=== PATIENT | female | born 1945 ===

== ENCOUNTER 2016-09-05 10:16 | Inpatient (IN) | payer MEDICARE, BC ==
[2016-09-05 10:51] LABS: BASO # 0.1 K/uL (0.0-0.2); BASO % 0.8 % (0.0-2.0); EOS # 0.2 K/uL (0.0-0.7); EOS % 1.3 % (0.0-4.0); HEMATOCRIT 36.9 % (34.0-47.0); LYMPH # 1.7 K/uL (1.0-4.3); LYMPH % 12.8 % (20.0-40.0); MEAN CELL VOLUME 90.8 fL (81.0-99.0); MEAN CORPUSCULAR HEMOGLOBIN 30.5 pg (27.0-31.0); MEAN CORPUSCULAR HGB CONC 33.6 g/dL (33.0-37.0); MEAN PLATELET VOLUME 8.4 fL (7.2-11.7); MONO # 1.6 K/uL (0.0-0.8); MONO % 11.8 % (0.0-10.0); RED CELL DISTRIBUTION WIDTH 13.9 % (11.5-14.5); WHITE BLOOD COUNT 13.6 K/uL (4.8-10.8)
[2016-09-05 11:01] LABS: INR 1.1; POTASSIUM 4.3 mmol/L (3.6-5.2)
[2016-09-05 11:03] LABS: ALB/GLOB RATIO 1.4 (1.0-2.1); BILIRUBIN,TOTAL 1.4 mg/dL (0.2-1.3); CALCIUM 9.1 mg/dl (8.6-10.4); TOTAL PROTEIN 7.3 g/dL (6.3-8.3)
[2016-09-05] MEDS ORDERED: Iohexol 240 (50 ml) PO STA (11:22)
[2016-09-05] MEDS ORDERED: Iohexol 240 (50 ml) ONE (11:30)
[2016-09-05] MEDS ORDERED: Morphine 4 MG/ML VIAL ONE (11:44)
[2016-09-05 12:55] LABS: RBC URINE 1 /hpf (0-3); URINE BILIRUBIN NEGATIVE (NEGATIVE); URINE BLOOD NEGATIVE (NEGATIVE); URINE COLOR Yellow (YELLOW); URINE GLUCOSE (UA) NORMAL (Normal); URINE KETONE NEGATIVE (NEGATIVE); URINE LEUKOCYTE ESTERASE NEG Leu/uL (Negative); URINE PROTEIN NEGATIVE (NEGATIVE); URINE UROBILINOGEN NORMAL mg/dL (0.2-1.0); WBC URINE < 1 /hpf (0-5)
--- NOTE | 2016-09-05 13:05 | C.PDOC ---
History Of Present Illness 71 year old female presents to the ED with complaints of abdominal pain with associated nausea for 2-3 days. Patient states the pain is mostly to the left side and notes it worsened today which prompted the visit. Denies vomiting, fever, chills, diarrhea, or any other complaints at this time. Chief Complaint (Nursing): Abdominal Pain History Per: Patient History/Exam Limitations: no limitations Onset/Duration Of Symptoms: Days Current Symptoms Are (Timing): Still Present Severity: Mild Radiation Of Pain To:: None Quality Of Discomfort: "Pain" Associated Symptoms: Nausea. denies: Fever, Chills, Vomiting, Diarrhea, Urinary Symptoms Abnormal Vaginal Bleeding: No Past Medical History Reviewed: Historical Data, Nursing Documentation, Vital Signs Vital Signs: Last Vital Signs Temp 98.5 F 09/05/16 13:23 Pulse 58 L 09/05/16 13:23 Resp 18 09/05/16 13:23 BP 128/50 L 09/05/16 13:23 Pulse Ox 96 09/05/16 15:52 - Medical History PMH: HTN, Hyperlipidemia, Hypothyroidism Family History: States: Unknown Family Hx - Social History Hx Alcohol Use: No Hx Substance Use: No - Immunization History Hx Tetanus Toxoid Vaccination: No Hx Influenza Vaccination: No Hx Pneumococcal Vaccination: No Review Of Systems Except As Marked, All Systems Reviewed And Found Negative. Constitutional: Negative for: Fever, Chills Gastrointestinal: Positive for: Nausea, Abdominal Pain. Negative for: Vomiting , Diarrhea Genitourinary: Negative for: Dysuria Musculoskeletal: Negative for: Back Pain Physical Exam - Physical Exam Appears: Non-toxic, Other (+Uncomfortable) Skin: Normal Color, Warm, Dry Head: Atraumatic, Normacephalic Eye(s): bilateral: Normal Inspection Oral Mucosa: Moist Chest: Symmetrical, No Deformity Cardiovascular: Rhythm Regular, No Murmur Respiratory: Normal Breath Sounds, No Accessory Muscle Use, No Rales, No Rhonchi , No Wheezing Gastrointestinal/Abdominal: Soft, Tenderness (+Tenderness mostly to the LLQ), No Distention, No Guarding, No Rebound Extremity: Normal ROM Neurological/Psych: Oriented x3, Normal Speech, Normal Cognition ED Course And Treatment - Laboratory Results Result Diagrams: 09/05/16 10:45 09/05/16 10:45 O2 Sat by Pulse Oximetry: 96 (Room air) Pulse Ox Interpretation: Normal - CT Scan/US CT ABD & Pelvis w/contrast Other Rad Studies (CT/US): Read By Radiologist, Radiology Report Reviewed CT/US Interpretation: Accession No. : [id number]. Patient Name / ID : DENA Mtz / [id number]. Exam Date : 09/05/2016 14:28:11 ( Approved ). Study Comment : Sex / Age : F / 71Y. Creator : Jorge A Patterson MD. Dictator : Jorge A Patterson MD. Railroad Construction Director : Senior Web Designer : Jorge A Patterson MD. Approver2 : Report Date : 09/05/2016 15:09:49. My Comment : . PROCEDURE: CT Abdomen and Pelvis with contrast. HISTORY: abd pain. COMPARISON: None. TECHNIQUE: Contrast dose: 100 cc of Omnipaque. This CT exam was performed using one or more of the following dose reduction techniques : Automated exposure control, adjustment of the mA and/or kV according to patient size, and/or use of iterative reconstruction technique. Helical scanning was obtained from the abdomen and pelvis with coronal and sagittal reconstructions. Radiation dose: Total exam DLP = 957 mGy-cm. FINDINGS: LOWER THORAX: Unremarkable. LIVER: Unremarkable. No gross lesion or ductal dilatation. GALLBLADDER AND BILE DUCTS: Mild intra and extrahepatic biliary dilatation compatible with post cholecystectomy state. PANCREAS: Unremarkable. No gross lesion or ductal dilatation. SPLEEN: Unremarkable. ADRENALS: Unremarkable. No mass. KIDNEYS AND URETERS: Unremarkable. No hydronephrosis. No solid mass. VASCULATURE: Unremarkable. No aortic aneurysm. BOWEL: Pericolonic fat infiltration voluming the proximal descending colon consistent with acute diverticulitis. APPENDIX: Normal appendix. PERITONEUM: Unremarkable. No free fluid. No free air. LYMPH NODES: Unremarkable. No enlarged lymph nodes. BLADDER: Unremarkable. REPRODUCTIVE: Unremarkable. BONES: No acute fracture. OTHER FINDINGS: None. IMPRESSION: Pericolonic fat infiltration voluming the proximal descending colon consistent with acute diverticulitis. No gross abscess or gross pneumoperitoneum. Progress Note: CT ABD & Pelvis w/contrast, Blood work, and Urinalysis ordered and reviewed. Patient treated with Morphine. Patient's CT shows acute diverticulitis. Patient was treated with Cipro and Flagyl. Case discussed with Dr. Pradhan who agreed to accept the patient under his service for admission. Disposition - Disposition Disposition: HOSPITALIZED Disposition Time: 15:15 Condition: FAIR - Clinical Impression Clinical Impression: Diverticulitis - PA / LICENSED MORTICIAN / Resident Statement MD/DO has reviewed & agrees with the documentation as recorded. - Scribe Statement The provider has reviewed the documentation as recorded by the Scribe Clinton Arevalo. All medical record entries made by the Scribe were at my direction and personally dictated by me. I have reviewed the chart and agree that the record accurately reflects my personal performance of the history, physical exam, medical decision making, and the department course for this patient. I have also personally directed, reviewed, and agree with the discharge instructions and disposition. Decision To Admit - Pt Status Changed To: Hospital Disposition Of: Inpatient - Admit Certification Admit to Inpatient:: After my assessment, the patient will require hospitalization for at least two midnights. This is because of the severity of symptoms shown, intensity of services needed, and/or the medical risk in this patient being treated as an outpatient. - InPatient: Physician Admission Certification:: Patient will need more than 2 days of inpatient admission for IV antibiotics. - . Bed Request Type: Regular Patient Diagnosis: Diverticulitis
[2016-09-05] MEDS ORDERED: Iodixanol 320 MG/ML 100 ML BOTTLE IV ONE (13:59)
--- NOTE | 2016-09-05 15:11 | CT ---
PROCEDURE: CT Abdomen and Pelvis with contrast HISTORY: abd pain COMPARISON: None. TECHNIQUE: Contrast dose: 100 cc of Omnipaque This CT exam was performed using one or more of the following dose reduction techniques: Automated exposure control, adjustment of the mA and/or kV according to patient size, and/or use of iterative reconstruction technique. Helical scanning was obtained from the abdomen and pelvis with coronal and sagittal reconstructions. Radiation dose: Total exam DLP = 957 mGy-cm. FINDINGS: LOWER THORAX: Unremarkable. LIVER: Unremarkable. No gross lesion or ductal dilatation. GALLBLADDER AND BILE DUCTS: Mild intra and extrahepatic biliary dilatation compatible with post cholecystectomy state. PANCREAS: Unremarkable. No gross lesion or ductal dilatation. SPLEEN: Unremarkable. ADRENALS: Unremarkable. No mass. KIDNEYS AND URETERS: Unremarkable. No hydronephrosis. No solid mass. VASCULATURE: Unremarkable. No aortic aneurysm. BOWEL: Pericolonic fat infiltration voluming the proximal descending colon consistent with acute diverticulitis. APPENDIX: Normal appendix. PERITONEUM: Unremarkable. No free fluid. No free air. LYMPH NODES: Unremarkable. No enlarged lymph nodes. BLADDER: Unremarkable. REPRODUCTIVE: Unremarkable. BONES: No acute fracture. OTHER FINDINGS: None. IMPRESSION: Pericolonic fat infiltration voluming the proximal descending colon consistent with acute diverticulitis. No gross abscess or gross pneumoperitoneum.
[2016-09-05] MEDS ORDERED: Ciprofloxacin 400mg/200ml D5W 200 ML IV STA (15:12)
[2016-09-05] MEDS ORDERED: metroNIDAZOLE IV 500 mg/100 ml 100 ML IV STA (15:12)
[2016-09-05] MEDS ORDERED: metroNIDAZOLE IV 500 mg/100 ml 100 ML ONE (15:18)
[2016-09-05 18:08] VITALS: RESP 20
[2016-09-05] MEDS: Bisoprolol-HCTZ 5-6.25 mg Tab PO SCH (21:38)
[2016-09-05] MEDS: Dextrose 5%/0.9% NS 1,000 ML IV SCH (21:40)
[2016-09-05] MEDS: Pantoprazole 40 mg EC Tab PO SCH ×2 (21:46→21:47)
[2016-09-06] MEDS: Ciprofloxacin 400mg/200ml D5W 200 ML IVPB SCH ×2 (04:50→17:17)
[2016-09-06] MEDS: Dextrose 5%/0.9% NS 1,000 ML IV SCH ×2 (05:30→15:30)
[2016-09-06] MEDS: metroNIDAZOLE IV 500 mg/100 ml 100 ML IVPB SCH ×3 (06:25→21:52)
[2016-09-06] MEDS ORDERED: Levothyroxine 100 MCG TAB PO SCH (06:30)
[2016-09-06] MEDS: Levothyroxine 150 MCG TAB PO SCH (06:40)
[2016-09-06] MEDS: NIFEdipine 30 mg ER Tab PO SCH (10:00)
[2016-09-06] MEDS: Pantoprazole 40 mg EC Tab PO SCH (10:00)
--- NOTE | 2016-09-06 20:43 | PN ---
DATE: 09/06/2016 The patient is seen today, 09/06/2016. She is not in any cardiopulmonary distress, and lower abdomin al pain is improving, but patient is complaining of low back pain. Blood pressure is 137/62, temperature 98, respiratory rate 20, and pulse 61. HEENT: Pupils equal, reactive to light. Normal-appearing mucosa of the conjunctivae, oropharyngeal, and nasal membrane mucosa. NECK: Supple, no JVD, no carotid bruit, no lymph node, no thyromegaly. CHEST AND LUNGS: Bilateral symmetrical expansion, good air exchange. No rales, no rhonchi. CARDIOVASCULAR SYSTEM: PMI not localized. S1, S2. No additional sounds. ABDOMEN: Normoactive bowel sounds, no tenderness, no organomegaly, no masses. EXTREMITIES: No cyanosis, no clubbing, no edema. CENTRAL NERVOUS SYSTEM: Alert, awake, oriented x 3. No neurological deficits could be appreciated. ASSESSMENT: 1. Acute noncomplicated diverticulitis of the descending colon. 2. Hypertension. 3. 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 4. Hypertension. PLAN: Continue current medications, and will advance diet as tolerated. Monitor electrolytes and re nal function. Cisco Pradhan MD cc: 167 TT: 09/06/2016 20:43:17 Confirmation # [id number] Dictation # [id number] lorna
--- NOTE | 2016-09-06 21:03 | HP ---
This is a 71-year-old female with history of multiple medical problems, who presented to Em ergency Room with symptoms of lower abdominal pain that has been progressive over the last 2 days nicolas or to this admission. The patient was evaluated in the Emergency Room, and she had a CAT scan of the abdomen and pelvis with p.o. contrast done that showed pericolonic fatty infiltration of the proxima l descending colon, consistent with acute diverticulitis. No gross abscess or gross pneumoperitoneum . The patient was started on both Cipro and Flagyl, and she was admitted for further management. OTHER REVIEW OF SYSTEMS: Negative. ALLERGY: No known allergy. HOME MEDICATIONS: Hydralazine 25 mg twice a day, Crestor 10 mg daily, Neurontin 100 mg 3 times a day , Procardia 30 mg daily, Protonix 40 mg daily, levothyroxine 150 mcg daily, Tricor 145 mg daily, biso prolol 5/6.25 mg once a day. SOCIAL HISTORY: Smoker more than 30 years. No ETOH or substance abuse. FAMILY HISTORY: Not contributory. PHYSICAL EXAMINATION: The patient was in bed in mild distress due to lower abdominal pain, with blood pressure 137/62, temp erature 98, respiratory rate 20, and pulse 61. HEENT: Pupils equal, reactive to light. Normal-appearing mucosa of the conjunctivae, oropharyngeal, and nasal membrane mucosa. NECK: Supple, no JVD, no carotid bruit, no lymph node, no thyromegaly. CHEST AND LUNGS: Bilateral symmetrical expansion, good air exchange, no rales, no rhonchi. CARDIOVASCULAR SYSTEM: PMI not localized. S1, S2. No additional sounds. ABDOMEN: Normoactive bowel sounds. Tenderness in the left lower quadrant. EXTREMITIES: No cyanosis, no clubbing, no edema. CENTRAL NERVOUS SYSTEM: Alert, awake, oriented x 3. No neurological deficits could be appreciated. ASSESSMENT: 1. Acute diverticulitis, noncomplicated, of the descending colon. 2. Hypertension. 3. Chronic kidney disease. 4. Degenerative spine disease. PLAN: We will continue the Cipro and Flagyl that were IV that was started on the Emergency Room. We will keep patient n.p.o. and advance diet to liquid diet the day following. The patient's home medi cations also was resumed. [facility] S Lorne BROWN cc: 167 TT: 09/06/2016 21:03:24 jn
[2016-09-06] MEDS: Bisoprolol-HCTZ 5-6.25 mg Tab PO SCH (21:51)
[2016-09-07] MEDS: Dextrose 5%/0.9% NS 1,000 ML IV SCH ×3 (04:18→22:03)
[2016-09-07] MEDS: Ciprofloxacin 400mg/200ml D5W 200 ML IVPB SCH ×2 (04:18→17:23)
[2016-09-07] MEDS: Levothyroxine 150 MCG TAB PO SCH (05:42)
[2016-09-07] MEDS: metroNIDAZOLE IV 500 mg/100 ml 100 ML IVPB SCH ×3 (05:59→22:03)
[2016-09-07 07:14] LABS: BASO # 0.1 K/uL (0.0-0.2); BASO % 1.8 % (0.0-2.0); EOS # 0.2 K/uL (0.0-0.7); EOS % 4.7 % (0.0-4.0); LYMPH # 1.3 K/uL (1.0-4.3); LYMPH % 30.2 % (20.0-40.0); MEAN CELL VOLUME 90.9 fL (81.0-99.0); MEAN CORPUSCULAR HGB CONC 34.1 g/dL (33.0-37.0); MEAN PLATELET VOLUME 8.5 fL (7.2-11.7); MONO # 0.6 K/uL (0.0-0.8); MONO % 13.7 % (0.0-10.0); RED CELL DISTRIBUTION WIDTH 13.7 % (11.5-14.5); WHITE BLOOD COUNT 4.4 K/uL (4.8-10.8)
[2016-09-07 07:45] LABS: POTASSIUM 3.7 mmol/L (3.6-5.2)
[2016-09-07 07:47] LABS: ALB/GLOB RATIO 1.5 (1.0-2.1); BILIRUBIN,TOTAL 0.6 mg/dL (0.2-1.3); CALCIUM 8.4 mg/dl (8.6-10.4); TOTAL PROTEIN 6.1 g/dL (6.3-8.3)
[2016-09-07] MEDS: Pantoprazole 40 mg EC Tab PO SCH (09:39)
[2016-09-07] MEDS: NIFEdipine 30 mg ER Tab PO SCH (09:40)
[2016-09-07] MEDS: Bisoprolol-HCTZ 5-6.25 mg Tab PO SCH (22:03)
[2016-09-08] MEDS: Ciprofloxacin 400mg/200ml D5W 200 ML IVPB SCH (04:27)
[2016-09-08] MEDS: metroNIDAZOLE IV 500 mg/100 ml 100 ML IVPB SCH ×2 (06:06→15:45)
[2016-09-08] MEDS ORDERED: Levothyroxine 100 MCG TAB PO SCH (06:30)
[2016-09-08] MEDS: Levothyroxine 150 MCG TAB PO SCH (06:36)
[2016-09-08] MEDS: Dextrose 5%/0.9% NS 1,000 ML IV SCH (08:35)
[2016-09-08 09:59] VITALS: BP 148/75; TEMP 98.6
[2016-09-08] MEDS: Pantoprazole 40 mg EC Tab PO SCH (10:12)
[2016-09-08] MEDS: NIFEdipine 30 mg ER Tab PO SCH (10:12)
[2016-09-08 12:17] VITALS: PULSE 62; O2SAT 98
--- NOTE | 2016-09-08 17:24 | CP.PCM.PN ---
Subjective - Date & Time of Evaluation Date of Evaluation: 09/08/16 Time of Evaluation: 17:20 - Subjective Subjective: Patient is seen and examined, alert and oriented x3, NAD. Denies abdominal pain or distress. D/W DR Pradhan , discharge plan for today on po flagyl , cipro and floraster. Advised to follow up with PMD in 1week. Objective - Vital Signs/Intake and Output Vital Signs (last 24 hours): Temp Pulse Resp BP Pulse Ox 98.6 F 62 20 148/75 98 09/08/16 08:00 09/08/16 12:06 09/08/16 08:00 09/08/16 08:00 09/08/16 12:06 Intake and Output: 09/08/16 09/08/16 06:59 18:59 Intake Total 640 400 Balance 640 400 - Labs Labs: 09/07/16 07:05 09/07/16 07:05 PT 12.8 SECONDS (9.7-12.2) H 09/05/16 10:45 INR 1.1 09/05/16 10:45 APTT 40 SECONDS (21-34) H 09/05/16 10:45
--- NOTE | 2016-09-09 09:49 | DS ---
REASON FOR ADMISSION: This is a 71-year-old female with history of multiple medical proble ms who was admitted for diverticulitis of the ascending colon. COURSE OF HOSPITALIZATION: The patient was initially kept n.p.o. and started on IV fluids, and start ed on Cipro and Flagyl intravenously. The patient's symptoms gradually improved, and the patient was started on clear liquid diet that advanced to regular diet, and the patient tolerated it well. The patient was switched to p.o. Cipro and Flagyl and probiotics, and [facility] with primary care physician, Dr. Pradhan, and with gastroenterology for colonoscopy as an outp atient. FINAL DIAGNOSES: 1. Acute noncomplicated diverticulitis. 2. Hypertension. 3. Chronic kidney disease. 4. Degenerative spine disease with radiculopathy. [facility] Marisa Pradhan MD cc: 167 TT: 09/09/2016 09:49:01 jn
== END 2016-09-08 16:53 | disposition home or self-care (01) | DRG 392 ==
LOC: C.ER 10:16 → C.9E 15:14 → C.3T 16:40
PROVIDERS: ADMIT Internal Medicine; ATTEND Internal Medicine
DX: K57.32 Diverticulitis of large intestine without perforation or abscess without bleeding (principal); I12.9 Hypertensive chronic kidney disease with stage 1 through stage 4 chronic kidney disease, or unspecified chronic kidney disease; E03.9 Hypothyroidism, unspecified; E78.5 Hyperlipidemia, unspecified; F17.210 Nicotine dependence, cigarettes, uncomplicated; N18.9 Chronic kidney disease, unspecified; M47.9 Spondylosis, unspecified

== ENCOUNTER 2017-03-02 09:06 | Inpatient (IN) | payer MEDICARE, BC ==
[2017-03-02] MEDS ORDERED: Naproxen 550 mg Tab PO ONE (09:31)
[2017-03-02 10:39] LABS: BASO % 0.3 % (0.0-2.0); EOS # 0.3 K/uL (0.0-0.7); EOS % 3.3 % (0.0-4.0); HEMATOCRIT 38.3 % (34.0-47.0); LYMPH # 2.3 K/uL (1.0-4.3); LYMPH % 29.3 % (20.0-40.0); MEAN CELL VOLUME 89.2 fL (81.0-99.0); MEAN CORPUSCULAR HGB CONC 34.8 g/dL (33.0-37.0); MEAN PLATELET VOLUME 8.2 fL (7.2-11.7); MONO % 11.9 % (0.0-10.0); NRBC % 0.1 % (0.0-2.0); RED CELL DISTRIBUTION WIDTH 13.9 % (11.5-14.5)
[2017-03-02 10:46] LABS: CHLORIDE 99 mmol/L (98-107)
[2017-03-02 10:47] LABS: POTASSIUM 3.7 mmol/L (3.6-5.2); SODIUM 141 mmol/L (132-148)
[2017-03-02 10:49] LABS: ALB/GLOB RATIO 1.5 (1.0-2.1); ALKALINE PHOSPHATASE 92 U/L (38-126); AST/SGOT 35 U/L (14-36); BILIRUBIN,TOTAL 0.7 mg/dL (0.2-1.3); BLOOD UREA NITROGEN 25 mg/dL (7-17); CARBON DIOXIDE 25 mmol/L (22-30); CHOLESTEROL 275 mg/dL (0-199); GFR AFRICAN-AMERICAN > 60; GLUCOSE,RANDOM 102 mg/dL (65-105); TOTAL PROTEIN 7.3 g/dL (6.3-8.3)
[2017-03-02 10:50] LABS: ALT/SGPT 52 U/L (9-52)
--- NOTE | 2017-03-02 11:25 | C.PDOC ---
History Of Present Illness 72 yr old female presents to the ER for evaluation of intermittent chest pain for the past few weeks, associated with peripheral edema. Patient states she was seen by Dr. Pradhan who recommended to come to ED for further evaluation. Patient also admits to SOB on exertion and worsening of chest tightness which radiates to the neck and stewart developed a headache. Patient currently denies active chest tightness, syncope, palpitations, worse headache of life, vision changes, nausea, vomiting, abdominal pain, diaphoresis, weakness or numbness. Time Seen by Provider: 03/02/17 09:30 Chief Complaint (Nursing): Shortness Of Breath History Per: Patient History/Exam Limitations: no limitations Onset/Duration Of Symptoms: Intermittent Episodes Current Symptoms Are (Timing): Still Present Past Medical History Reviewed: Historical Data, Nursing Documentation, Vital Signs Vital Signs: Last Vital Signs Temp 98.8 F 03/05/17 08:23 Pulse 59 L 03/05/17 09:34 Resp 20 03/05/17 08:23 BP 131/67 03/05/17 08:23 Pulse Ox 95 03/05/17 08:23 - Medical History PMH: HTN, Hypercholesterolemia, Hyperlipidemia, Hypothyroidism - [facility] Procedures FLUOROSCOPY OF LEFT HEART USING LOW OSMOLAR CONTRAST (03/02/17) FLUOROSCOPY OF MULT COR ART USING L OSM CONTRAST (03/02/17) MEASURE OF CARDIAC SAMPL & PRESSURE, L HEART, PERC APPROACH (03/02/17) Family History: States: No Known Family Hx - Social History Hx Alcohol Use: No Hx Substance Use: No - Immunization History Hx Tetanus Toxoid Vaccination: No Hx Influenza Vaccination: Yes (2016) Hx Pneumococcal Vaccination: No (UNKNOWN) Review Of Systems Except As Marked, All Systems Reviewed And Found Negative. Eyes: Negative for: Vision Change Cardiovascular: Positive for: Chest Pain (No active chest pain.). Negative for : Palpitations Respiratory: Positive for: Shortness of Breath Gastrointestinal: Negative for: Nausea, Vomiting, Abdominal Pain Neurological: Positive for: Headache. Negative for: Weakness, Numbness Physical Exam - Physical Exam Appears: Non-toxic, No Acute Distress Skin: Warm, Dry, No Rash Head: Atraumatic, Normacephalic Oral Mucosa: Moist Throat: Normal, No Erythema, No Exudate, No Drooling Neck: Normal, Normal ROM, Supple Chest: Symmetrical, No Tenderness Cardiovascular: Rhythm Regular, No Murmur Respiratory: Normal Breath Sounds, No Rales, No Rhonchi, No Stridor, No Wheezing Extremity: Normal ROM, No Swelling Neurological/Psych: Oriented x3, Normal Speech, Normal Motor, Normal Sensation ED Course And Treatment - Laboratory Results Result Diagrams: 03/03/17 06:24 03/04/17 06:08 ECG: Interpreted By Me, Viewed By Me ECG Rhythm: Sinus Rhythm ECG Interpretation: Normal Rate From EC (BPM) O2 Sat by Pulse Oximetry: 95 (RA) Pulse Ox Interpretation: Normal - Other Rad CXR X-Ray: Viewed By Me, Read By Radiologist Interpretation: Chest x-ray two views. History: Chest pain. Comparison: None available. Findings: Mild venous congestion. Patchy increased markings at the lung bases. Small nodular density at the medial right lung apex may represent confluence of shadows with ribs and vessels. Biapical pleural thickening. Minimal right midlung atelectasis. Mild cardiomegaly. Calcification at the aortic. Degenerative changes in the spine and shoulders. Impression: Mild venous congestion. Patchy increased markings at the lung bases. Small nodular density at the medial right lung apex may represent confluence of shadows with ribs and vessels. Biapical pleural thickening. Minimal right midlung atelectasis. Mild cardiomegaly. - CT Scan/US CT head Other Rad Studies (CT/US): Radiology Report Reviewed CT/US Interpretation: (+) small meningioma Right parietal area, no acute ICH Progress Note: Pt remianed stable during the ED evaluation. Case discussed with pt's PMD and admission arranged with card. consult by . Dr. Santo notified for consult. Medical Decision Making Medical Decision Making: PLAN: * CT - CTA * CXR * EKG * Troponin * CBC * CMP * Urinalysis Disposition - Disposition Disposition: HOSPITALIZED Disposition Time: 11:47 Condition: STABLE - Clinical Impression Clinical Impression: Chest pain, Congestive heart failure - PA / HARVESTING SUPERVISOR / Resident Statement MD/DO has reviewed & agrees with the documentation as recorded. - Scribe Statement The provider has reviewed the documentation as recorded by the Scribe Yuki Orosco All medical record entries made by the Scribe were at my direction and personally dictated by me. I have reviewed the chart and agree that the record accurately reflects my personal performance of the history, physical exam, medical decision making, and the department course for this patient. I have also personally directed, reviewed, and agree with the discharge instructions and disposition.
--- NOTE | 2017-03-02 11:57 | RAD ---
Chest x-ray two views History: Chest pain. Comparison: None available. Findings: Mild venous congestion. Patchy increased markings at the lung bases. Small nodular density at the medial right lung apex may represent confluence of shadows with ribs and vessels. Biapical pleural thickening. Minimal right midlung atelectasis. Mild cardiomegaly. Calcification at the aortic. Degenerative changes in the spine and shoulders. Impression: Mild venous congestion. Patchy increased markings at the lung bases. Small nodular density at the medial right lung apex may represent confluence of shadows with ribs and vessels. Biapical pleural thickening. Minimal right midlung atelectasis. Mild cardiomegaly.
[2017-03-02 12:10] LABS: RBC URINE 3 /hpf (0-3); URINE BACTERIA RARE (<OCC); URINE BILIRUBIN NEGATIVE (NEGATIVE); URINE BLOOD NEGATIVE (NEGATIVE); URINE COLOR Amber (YELLOW); URINE GLUCOSE (UA) NORMAL (Normal); URINE KETONE NEGATIVE (NEGATIVE); URINE LEUKOCYTE ESTERASE 2+ Leu/uL (Negative); URINE PROTEIN NEGATIVE (NEGATIVE); URINE UROBILINOGEN NORMAL mg/dL (0.2-1.0); WBC URINE 10 /hpf (0-5)
[2017-03-02] MEDS ORDERED: Enoxaparin 80 mg Syringe ONE (14:53)
[2017-03-02] MEDS: Enoxaparin 80 mg Syringe SC SCH ×2 (14:58→23:18)
--- NOTE | 2017-03-02 15:25 | CP.PCM.CON ---
<Cuong Renee - Last Filed: 03/02/17 17:57> History of Present Illness - History of Present Illness History of Present Illness: Cardiology Consult Note- Dr. Santo's service Patient was seen and examined at approximately 14:00 in the emergency department. CC: chest pain with and without exertion HPI: 72 year old female with past medical history significant for hypertension, hypothyroidism, hypercholesterolemia, neuropathic pain and duodenal ulcers presents with complaints of chest pain and shortness of breath as well as lower extremity swelling. Patient states that she was experiencing a chest tightness that radiated up her neck. She states that she had been experiencing symptoms for the past 3 weeks both at rest as well as with ambulation. It appears that her symptoms worsened with ambulation though such that while taking a walk outside, she had to take a seat and rest on a neighbor's doorstep. She states that she is only able to walk approx half a block before the symptoms begin. She admits to sleeping with 2 pillows at night for the past 2 years. Patient states that the lower extremity swelling began on Thursday. Patient states that she normally takes Lasix daily. She states that she had to increase her dose of Lasix to 100 mg in order to have some relief. She states that the swelling decreased in the days afterwards and thus she did not need to take her scheduled Lasix dose for the following days. Patient states that she was evaluated by her PMD Dr. Pradhan who asked her to come to the emergency department for further evaluation. Patient denies current chest pain, palpitations, dyspnea, subjective fevers or chills, nausea, vomiting, diarrhea at this time. PMHx- as stated above PSHx-denies Medications: Pantoprazole 40 mg Po daily, Nifedipine ER 30 mg daily, Levothyroxine, 100 mcg daily, Bisoprolol/HCTZ 5/6.25 mg nightly, Hydralazine 25 mg BID, Fenofibrate 145 mg QHS, Atorvastatin 20 mg QHS, ASA 325 mg QHS, Mirtazapine 30 mg HS, Neurontin 300 mg Q8H Fam Hx- Mom and Dad both had CVA, Dad also had mitral valve disease; two sisters have HTN Social- Admits to smoking 1 ppd for approximately 50 years. Patient quit summer; denies drinking alcohol, denies illicit drug use Allergies- NKDA Review of Systems - Review of Systems Systems not reviewed;Unavailable: Other (hard of hearing in right ear) - Constitutional Constitutional: Weight Loss. absent: Lethargy, Malaise - EENT Eyes: absent: Blurred Vision, Change in Vision Ears: Decreased Hearing - Cardiovascular Cardiovascular: Chest Pain, Chest Pain at Rest, Chest Pain with Activity, Dyspnea, Leg Edema - Respiratory Respiratory: Dyspnea on Exertion. absent: Cough, Dyspnea - Gastrointestinal Gastrointestinal: absent: Nausea, Vomiting - Musculoskeletal Musculoskeletal: absent: Back Pain, Numbness - Integumentary Integumentary: absent: Dry Skin - Neurological Neurological: absent: Abnormal Gait, Abnormal Hearing, Confusion - Hematologic/Lymphatic Hematologic: absent: Easy Bleeding, Easy Bruising Past Patient History - Past Medical History & Family History Past Medical History?: Yes - Past Social History Smoking Status: Former Smoker Alcohol: None Drugs: Denies Home Situation {Lives}: With Family (with daughter) - CARDIAC Hx Hypercholesterolemia: Yes Hx Hypertension: Yes - HEENT Hx HEENT Problems: Yes Hx Deafness: Yes (TRIBE RT EAR) - ENDOCRINE/METABOLIC Hx Hypothyroidism: Yes - MUSCULOSKELETAL/RHEUMATOLOGICAL Hx Musculoskeletal Disorders: Yes Hx Back Pain: Yes Hx Falls: No - PSYCHIATRIC Hx Substance Use: No - SURGICAL HISTORY Hx Surgeries: No - ANESTHESIA Hx Anesthesia: No Meds Allergies/Adverse Reactions: Allergies Allergy/AdvReac Type Severity Reaction Status Date / Time No Known Allergies Allergy Verified 03/02/17 09:25 - Medications Medications: Current Medications Aspirin (Aspirin) 325 mg PO DAILY [facility] Last Admin: 03/02/17 14:58 Dose: 325 mg Enoxaparin Sodium (Lovenox) 70 mg SC Q12 [facility] Last Admin: 03/02/17 14:58 Dose: 70 mg Rosuvastatin Calcium (Crestor) 40 mg PO HS [facility] Physical Exam - Constitutional Appears: Non-toxic, No Acute Distress - Head Exam Head Exam: ATRAUMATIC, NORMAL INSPECTION, NORMOCEPHALIC - Eye Exam Eye Exam: EOMI, Normal appearance, PERRL Pupil Exam: NORMAL ACCOMODATION - ENT Exam ENT Exam: Mucous Membranes Moist - Neck Exam Neck exam: Negative for: Full Rom (decreased), Tenderness Additional comments: left sided swelling of the neck; nontender - Respiratory Exam Respiratory Exam: NORMAL BREATHING PATTERN. absent: Decreased Breath Sounds - Cardiovascular Exam Cardiovascular Exam: +S1, +S2. absent: Systolic Murmur - GI/Abdominal Exam GI & Abdominal Exam: Normal Bowel Sounds, Soft. absent: Tenderness - Extremities Exam Extremities exam: Positive for: full ROM, normal capillary refill, pedal edema ( non-pitting), pedal pulses present. Negative for: calf tenderness, tenderness - Back Exam Back exam: FULL ROM - Neurological Exam Neurological exam: Alert, CN II-XII Intact, Oriented x3 - Psychiatric Exam Psychiatric exam: Normal Affect, Normal Mood - Skin Skin Exam: Dry, Intact, Normal Color, Warm Additional comments: decreased skin turgor Results - Vital Signs Recent Vital Signs: Last Vital Signs Temp 97.6 F 03/02/17 15:02 Pulse 60 03/02/17 15:02 Resp 18 03/02/17 15:02 BP 146/72 03/02/17 15:02 Pulse Ox 97 03/02/17 15:02 - Labs Result Diagrams: 03/02/17 10:32 03/02/17 10:32 Labs: Laboratory Results - last 24 hr 03/02/17 03/02/17 03/02/17 10:32 10:32 10:32 WBC 8.0 D RBC 4.29 Hgb 13.3 D Hct 38.3 MCV 89.2 MCH 31.0 MCHC 34.8 RDW 13.9 Plt Count 301 MPV 8.2 Neut % (Auto) 55.2 Lymph % (Auto) 29.3 [place] % (Auto) 11.9 H Eos % (Auto) 3.3 Baso % (Auto) 0.3 Neut # 4.4 Lymph # 2.3 [place] # 1.0 H Eos # 0.3 Baso # 0.0 PT 11.0 INR 1.0 APTT 51 H D-Dimer, Quantitative Sodium 141 Potassium 3.7 Chloride 99 Carbon Dioxide 25 Anion Gap 20 BUN 25 H Creatinine 0.9 Est GFR ( Amer) > 60 Est GFR (Non-Af Amer) > 60 Random Glucose 102 Calcium 10.0 Total Bilirubin 0.7 AST 35 ALT 52 D Alkaline Phosphatase 92 Troponin I < 0.0120 NT-Pro-B Natriuret Pep 408 Total Protein 7.3 Albumin 4.3 Globulin 2.9 Albumin/Globulin Ratio 1.5 Triglycerides 299 H Cholesterol 275 H LDL Cholesterol Direct 216 H HDL Cholesterol 41 Urine Color Urine Clarity Urine pH Ur Specific [place] Urine Protein Urine Glucose (UA) Urine Ketones Urine Blood Urine Nitrate Urine Bilirubin Urine Urobilinogen Ur Leukocyte Esterase Urine WBC (Auto) Urine RBC (Auto) Ur Squamous Epith Cells Urine Bacteria 03/02/17 03/02/17 12:01 15:00 WBC RBC Hgb Hct MCV MCH MCHC RDW Plt Count MPV Neut % (Auto) Lymph % (Auto) [place] % (Auto) Eos % (Auto) Baso % (Auto) Neut # Lymph # [place] # Eos # Baso # PT INR APTT D-Dimer, Quantitative 266 H Sodium Potassium Chloride Carbon Dioxide Anion Gap BUN Creatinine Est GFR ( Amer) Est GFR (Non-Af Amer) Random Glucose Calcium Total Bilirubin AST ALT Alkaline Phosphatase Troponin I NT-Pro-B Natriuret Pep Total Protein Albumin Globulin Albumin/Globulin Ratio Triglycerides Cholesterol LDL Cholesterol Direct HDL Cholesterol Urine Color Karishma Urine Clarity Clear Urine pH 5.0 Ur Specific [place] 1.021 Urine Protein Negative Urine Glucose (UA) Normal Urine Ketones Negative Urine Blood Negative Urine Nitrate Negative Urine Bilirubin Negative Urine Urobilinogen Normal Ur Leukocyte Esterase 2+ H Urine WBC (Auto) 10 H Urine RBC (Auto) 3 Ur Squamous Epith Cells 24 H Urine Bacteria Rare Assessment & Plan (1) Unstable angina Assessment and Plan: GWENDOLYN 1 and 2 negative. F/U GWENDOLYN 3 EKG 1 NSR, EKG 2 Sinus allen @ apprx 53 bpm. F/U EKG 3 Marginally elevated D-Dimer CT of Chest- No apparent signs of PE; small hiatal hernia noted; non specific 8 mm nodular density in left breast of unclear significance (Will relay to primary) CXR- mild venous congestion; patchy increased markings at lung bases; biapical pleural thickening, mild cardiomegaly Patient will need further intervention and thus will be scheduled for catheterization tomorrow. NPO past midnight Lovenox 70 SC Q12 ASA 325 mg daily Crestor 40 mg HS Oxygen 2L nc F/U Echo F/U Coags, Thyroid studies, A1c Status: Acute (2) HTN (hypertension) Assessment and Plan: Normotensive at this time On Bisoprolol/HCTZ daily Will continue to monitor and adjust as needed following cath Status: Chronic (3) Hypercholesterolemia Assessment and Plan: Lipid Panel elevated T 299, C 275, HDL 41, LDL 216 Crestor 40 mg PO HS Diet and exercise counseling reinforced. Status: Chronic (4) Hypothyroidism Assessment and Plan: 100 mcg daily F/U thyroid studies Status: Acute (5) Prophylactic measure Assessment and Plan: on full dose Lovenox 70 SC Q12 SCDs contraindicated due to bilateral LE swelling PPI 40 mg PO daily Status: Acute <Cullen Santo - Last Filed: 03/02/17 21:29> Meds - Medications Medications: Current Medications Aspirin (Aspirin) 325 mg PO DAILY [facility] Last Admin: 03/02/17 14:58 Dose: 325 mg Bisoprolol Fumarate/HCTZ (Ziac 5-6.25 Mg) 1 tab PO DAILY [facility] Enoxaparin Sodium (Lovenox) 70 mg SC Q12 [facility] Last Admin: 03/02/17 14:58 Dose: 70 mg Levothyroxine Sodium (Synthroid) 100 mcg PO DAILY@0630 [facility] Pantoprazole Sodium (Protonix Ec Tab) 40 mg PO DAILY [facility] Last Admin: 03/02/17 16:40 Dose: 40 mg Pneumococcal Polyvalent Vaccine (Pneumovax 23 Vaccine) 0.5 ml IM .ONCE ONE Stop: 03/04/17 10:01 Rosuvastatin Calcium (Crestor) 40 mg PO [facility] Results - Vital Signs Recent Vital Signs: Last Vital Signs Temp 97.6 F 03/02/17 16:00 Pulse 58 L 03/02/17 19:00 Resp 18 03/02/17 19:00 BP 135/63 03/02/17 19:00 Pulse Ox 97 03/02/17 19:00 - Labs Result Diagrams: 03/02/17 10:32 03/02/17 10:32 Labs: Laboratory Results - last 24 hr 03/02/17 03/02/17 03/02/17 10:32 10:32 10:32 WBC 8.0 D RBC 4.29 Hgb 13.3 D Hct 38.3 MCV 89.2 MCH 31.0 MCHC 34.8 RDW 13.9 Plt Count 301 MPV 8.2 Neut % (Auto) 55.2 Lymph % (Auto) 29.3 [place] % (Auto) 11.9 H Eos % (Auto) 3.3 Baso % (Auto) 0.3 Neut # 4.4 Lymph # 2.3 [place] # 1.0 H Eos # 0.3 Baso # 0.0 PT 11.0 INR 1.0 APTT 51 H D-Dimer, Quantitative Sodium 141 Potassium 3.7 Chloride 99 Carbon Dioxide 25 Anion Gap 20 BUN 25 H Creatinine 0.9 Est GFR ( Amer) > 60 Est GFR (Non-Af Amer) > 60 Random Glucose 102 Calcium 10.0 Total Bilirubin 0.7 AST 35 ALT 52 D Alkaline Phosphatase 92 Total Creatine Kinase CK-MB (Mass) Troponin I < 0.0120 Troponin I, Quant NT-Pro-B Natriuret Pep 408 Total Protein 7.3 Albumin 4.3 Globulin 2.9 Albumin/Globulin Ratio 1.5 Triglycerides 299 H Cholesterol 275 H LDL Cholesterol Direct 216 H HDL Cholesterol 41 Urine Color Urine Clarity Urine pH Ur Specific [place] Urine Protein Urine Glucose (UA) Urine Ketones Urine Blood Urine Nitrate Urine Bilirubin Urine Urobilinogen Ur Leukocyte Esterase Urine WBC (Auto) Urine RBC (Auto) Ur Squamous Epith Cells Urine Bacteria 03/02/17 03/02/17 03/02/17 12:01 15:00 16:26 WBC RBC Hgb Hct MCV MCH MCHC RDW Plt Count MPV Neut % (Auto) Lymph % (Auto) [place] % (Auto) Eos % (Auto) Baso % (Auto) Neut # Lymph # [place] # Eos # Baso # PT INR APTT D-Dimer, Quantitative 266 H Sodium Potassium Chloride Carbon Dioxide Anion Gap BUN Creatinine Est GFR ( Amer) Est GFR (Non-Af Amer) Random Glucose Calcium Total Bilirubin AST ALT Alkaline Phosphatase Total Creatine Kinase 72 CK-MB (Mass) 0.68 Troponin I Troponin I, Quant < 0.0120 NT-Pro-B Natriuret Pep Total Protein Albumin Globulin Albumin/Globulin Ratio Triglycerides Cholesterol LDL Cholesterol Direct HDL Cholesterol Urine Color Karishma Urine Clarity Clear Urine pH 5.0 Ur Specific [place] 1.021 Urine Protein Negative Urine Glucose (UA) Normal Urine Ketones Negative Urine Blood Negative Urine Nitrate Negative Urine Bilirubin Negative Urine Urobilinogen Normal Ur Leukocyte Esterase 2+ H Urine WBC (Auto) 10 H Urine RBC (Auto) 3 Ur Squamous Epith Cells 24 H Urine Bacteria Rare Assessment & Plan - Assessment and Plan (Free Text) Assessment: Patient seen and evaluated with the Chief Clinical Dietitian Plan of care discussed and documented Unstable angina For cath in am. Patient agreed for the procedure Orders written
--- NOTE | 2017-03-02 16:01 | CT ---
CTA chest PE protocol Indication: Shortness of breath Technique: Contiguous axial images were obtained through the chest with intravenous contrast enhancement. Sagittal and coronal reconstructions were generated and reviewed. This CT exam was performed using 1 or more of the falling dose reduction techniques: Automated exposure control, adjustment of the MAA and/or kV according to patient size, and/or use of iterative reconstruction technique. IV Contrast: 100 mL Visipaque Radiation dose (DLP): 547.75 MGy-cm. Comparison: Chest x-ray performed 03/02/17 Findings: The mediastinal and hilar vascular structures appear within normal limits. The heart appears within normal limits of size. No large central or segmental pulmonary embolus evident. No focal consolidation. No pleural effusion. No pneumothorax. No suspicious pulmonary nodules measuring greater than 5 mm. Limited visualized portions of the upper abdomen demonstrates hypoattenuation of the liver compatible with hepatic steatosis. Nonspecific 8 mm nodular density in the left breast of unclear significance (series 2, image 148). Suggest further evaluation with dedicated breast imaging. Small hiatal hernia. Mild degenerative changes of the spine. Impression: No large central or segmental pulmonary embolus identified. Hypoattenuation of the liver compatible with hepatic steatosis. Nonspecific 8 mm nodular density in the left breast of unclear significance (series 2, image 148). Suggest further evaluation with dedicated breast imaging. Small hiatal hernia.
--- NOTE | 2017-03-02 16:32 | CT ---
PROCEDURE: CT HEAD WITH AND WITHOUT CONTRAST HISTORY: HEADACHE AND DIZZINESS COMPARISON: None available. TECHNIQUE: Axial computed tomography images were obtained through the head/brain with and without intravenous contrast enhancement. Contrast dose: 100 cc Visipaque 320 contrast material injected for prior CTA of the chest earlier same day Radiation dose: Total exam DLP = 1965.64 mGy-cm. This CT exam was performed using one or more of the following dose reduction techniques: Automated exposure control, adjustment of the mA and/or kV according to patient size, and/or use of iterative reconstruction technique. FINDINGS: HEMORRHAGE: No acute parenchymal, subarachnoid or extra-axial hemorrhage. BRAIN: No evidence of large acute infarct. There is a small approximately 13.55 mm ap x 11mm t elliptical shaped enhancing extra-axial mass in the right posterior superior parietal convexity consistent with a meningioma. No other extra-axial masses poor parenchymal masses or collections. Ventricular and sulcal size are within range of normal for this patient's stated age. VENTRICLES: No obstructive hydrocephalus CALVARIUM: There are no acute calvarial fracture seen. SINUSES: No significant mucoperiosteal inflammatory changes within the paranasal sinuses MASTOID AIR CELLS: Unremarkable as visualized. No mastoid effusion. OTHER FINDINGS: None. IMPRESSION: Small mild meningioma right posterior superior parietal convexity as above. No evidence of acute intracranial hemorrhage or infarct
[2017-03-02] MEDS: Pantoprazole 40 mg EC Tab PO SCH (16:40)
[2017-03-03] MEDS: Levothyroxine 100 MCG TAB PO SCH (05:53)
[2017-03-03 06:34] LABS: BASO # 0.1 K/uL (0.0-0.2); BASO % 1.7 % (0.0-2.0); EOS # 0.3 K/uL (0.0-0.7); EOS % 5.1 % (0.0-4.0); HEMATOCRIT 36.6 % (34.0-47.0); LYMPH # 2.5 K/uL (1.0-4.3); LYMPH % 38.6 % (20.0-40.0); MEAN CELL VOLUME 89.6 fL (81.0-99.0); MEAN CORPUSCULAR HEMOGLOBIN 31.3 pg (27.0-31.0); MEAN CORPUSCULAR HGB CONC 34.9 g/dL (33.0-37.0); MEAN PLATELET VOLUME 8.4 fL (7.2-11.7); MONO # 0.7 K/uL (0.0-0.8); MONO % 10.6 % (0.0-10.0); RED CELL DISTRIBUTION WIDTH 13.6 % (11.5-14.5); WHITE BLOOD COUNT 6.4 K/uL (4.8-10.8)
[2017-03-03 06:46] LABS: CHLORIDE 102 mmol/L (98-107)
[2017-03-03 06:47] LABS: POTASSIUM 3.1 mmol/L (3.6-5.2); SODIUM 140 mmol/L (132-148)
[2017-03-03 06:49] LABS: ALB/GLOB RATIO 1.4 (1.0-2.1); ALKALINE PHOSPHATASE 91 U/L (38-126); AST/SGOT 24 U/L (14-36); BILIRUBIN,TOTAL 0.5 mg/dL (0.2-1.3); CARBON DIOXIDE 25 mmol/L (22-30); GFR AFRICAN-AMERICAN > 60; TOTAL PROTEIN 6.1 g/dL (6.3-8.3)
[2017-03-03 06:50] LABS: ALT/SGPT 48 U/L (9-52); BLOOD UREA NITROGEN 19 mg/dL (7-17); CALCIUM 9.1 mg/dl (8.6-10.4); GLUCOSE,RANDOM 109 mg/dL (65-105); INR 1.1; MAGNESIUM 1.6 mg/dL (1.6-2.3); PHOSPHOROUS 4.3 mg/dL (2.5-4.5)
[2017-03-03] MEDS: Pantoprazole 40 mg EC Tab PO SCH (09:07)
[2017-03-03] MEDS ORDERED: Dextrose 5%/0.45% NS 1,000 ML IV SCH (09:45)
[2017-03-03] MEDS ORDERED: Potassium Chloride 20 mEq ER Tab PO ONE (10:00)
[2017-03-03] MEDS: Enoxaparin 80 mg Syringe SC SCH (10:00)
[2017-03-03] MEDS ORDERED: Bisoprolol-HCTZ 5-6.25 mg Tab PO SCH (10:00)
[2017-03-03] MEDS: Magnesium Sulfate 1 gm in D5W 1 GM/100 ML BAG IVPB SCH ×2 (10:33→12:05)
[2017-03-03] MEDS ORDERED: Iohexol 350mg/ml 100 ML ONE (14:50)
[2017-03-03] MEDS ORDERED: Midazolam 2 MG/2 ML VIAL ONE (14:50)
--- NOTE | 2017-03-03 15:43 | CP.PCM.PN ---
Subjective - Date & Time of Evaluation Date of Evaluation: 03/03/17 Time of Evaluation: 15:41 - Subjective Subjective: Patient s/p Cath 1. Small vessel disease 2. Non obstructive coronaries 3. Normal Ef Medical management with ASA 81, Statins and Imdur Objective - Vital Signs/Intake and Output Vital Signs (last 24 hours): Temp Pulse Resp BP Pulse Ox 98 F 50 L 13 115/50 L 96 03/03/17 12:00 03/03/17 13:00 03/03/17 13:00 03/03/17 13:00 03/03/17 13:00 Intake and Output: 03/03/17 03/03/17 06:59 18:59 Intake Total 250 Balance 250 - Medications Medications: Current Medications Aspirin (Aspirin) 81 mg PO DAILY [facility] Bisoprolol Fumarate/HCTZ (Ziac 5-6.25 Mg) 1 tab PO DAILY [facility] Last Admin: 03/03/17 10:36 Dose: 1 tab Enoxaparin Sodium (Lovenox) 30 mg SC DAILY [facility] Gabapentin (Neurontin) 300 mg PO Q8 [facility] Last Admin: 03/03/17 13:58 Dose: Not Given Dextrose/Sodium Chloride (Dextrose 5%/0.45% Ns 1000 Ml) 1,000 mls @ 100 mls/hr IV .Q10H [facility] Last Admin: 03/03/17 10:34 Dose: 100 mls/hr Isosorbide Mononitrate (Imdur) 60 mg PO DAILY [facility] Levothyroxine Sodium (Synthroid) 100 mcg PO DAILY@0630 [facility] Last Admin: 03/03/17 05:53 Dose: 100 mcg Mirtazapine (Remeron) 30 mg PO HS [facility] Nicotine (Nicoderm Cq) 1 patch TD DAILY [facility] Last Admin: 03/03/17 10:34 Dose: 1 patch Pantoprazole Sodium (Protonix Ec Tab) 40 mg PO DAILY [facility] Last Admin: 03/03/17 09:07 Dose: 40 mg Pneumococcal Polyvalent Vaccine (Pneumovax 23 Vaccine) 0.5 ml IM .ONCE ONE Stop: 03/04/17 10:01 Rosuvastatin Calcium (Crestor) 40 mg PO HS [facility] Last Admin: 03/02/17 23:17 Dose: 40 mg - Labs Labs: 03/03/17 06:24 03/03/17 06:24 PT 11.9 SECONDS (9.7-12.2) 03/03/17 06:24 INR 1.1 03/03/17 06:24 APTT 95 SECONDS (21-34) H D 03/03/17 06:24
[2017-03-04] MEDS: Levothyroxine 100 MCG TAB PO SCH (06:04)
[2017-03-04 06:29] LABS: CHLORIDE 101 mmol/L (98-107); POTASSIUM 4.2 mmol/L (3.6-5.2); SODIUM 137 mmol/L (132-148)
[2017-03-04 06:31] LABS: BILIRUBIN,TOTAL 0.6 mg/dL (0.2-1.3); GFR AFRICAN-AMERICAN > 60
[2017-03-04 06:32] LABS: ALB/GLOB RATIO 1.6 (1.0-2.1); ALKALINE PHOSPHATASE 78 U/L (38-126); AST/SGOT 21 U/L (14-36); BLOOD UREA NITROGEN 19 mg/dL (7-17); CARBON DIOXIDE 22 mmol/L (22-30); GLUCOSE,RANDOM 91 mg/dL (65-105); TOTAL PROTEIN 5.7 g/dL (6.3-8.3)
[2017-03-04 06:33] LABS: ALT/SGPT 45 U/L (9-52); CALCIUM 7.8 mg/dl (8.6-10.4); MAGNESIUM 1.9 mg/dL (1.6-2.3)
[2017-03-04 07:03] VITALS: RESP 20
--- NOTE | 2017-03-04 09:16 | HP ---
HISTORY OF PRESENT ILLNESS: This is a 72-year-old female with history of multiple medical problems, presented to emergency room with symptoms of chest pain that radiates to the throat. Symptoms are mostly exertional. Symptoms have started about one week prior to this admission and has progressed. The patient was evaluated in the emergency room and due to multiple risk factors for coronary artery disease with typical symptoms, the patient was admitted for further management. Cardiology consultation also was called and done by Dr Francis. REVIEW OF SYSTEMS: Other review of system is negative. ALLERGIES: NO KNOWN ALLERGIES. HOME MEDICATIONS: Aspirin 81 mg daily, hydralazine 25 mg 3 times a day, Protonix 40 mg daily, Ziac 5/6.25 mg daily, atorvastatin 40 mg daily, nifedipine 60 mg daily, Remeron 1 tablet at bedtime, levothyroxine 100 mcg daily, gabapentin 100 mg 3 times a day, and fenofibrate 145 mg daily. PAST MEDICAL HISTORY: Hypertension, hypothyroidism, chronic kidney disease, and osteoarthritis. SOCIAL HISTORY: Smoker. No ETOH or substance abuse. FAMILY HISTORY: Noncontributory. PHYSICAL EXAMINATION: GENERAL: The patient is in bed, comfortable, and not in any cardiopulmonary distress. VITAL SIGNS: Blood pressure 117/78, temperature 97.2, respiratory rate 18, and pulse 53. HEENT: Pupils equal and reactive to light. Normal appearing mucosa of the conjunctivae, oropharyngeal, and nasal membrane mucosa. NECK: Supple. No JVD. No carotid bruit. No lymph node. No thyromegaly. CHEST AND LUNGS: Bilateral symmetrical expansion with good air exchange. No rales. No rhonchi. CARDIOVASCULAR SYSTEM: PMI not localized. S1 and S2. No additional sounds. ABDOMEN: Normoactive bowel sounds. No tenderness. No organomegaly. No masses. EXTREMITIES: No cyanosis. No clubbing. No edema. CENTRAL NERVOUS SYSTEM: Alert, awake, and oriented x3. No neurological deficits could be appreciated. ASSESSMENT: Chest pain, rule out acute coronary syndrome,hypertension, hypothyroidism, and degenerative spine disease. PLAN: Continue aspirin and follow cardiology recommendations. Resume the patient's home medications. Cisco Pradhan MD [facility] # [id number]
[2017-03-04] MEDS ORDERED: Pneumococcal 23-Valent Vaccine IM ONE (10:00)
[2017-03-04] MEDS ORDERED: Enoxaparin 80 mg Syringe SC SCH (10:00)
[2017-03-04] MEDS ORDERED: Oxycodone/Acetaminophen 5/325 mg Tab PO PRN (11:21)
--- NOTE | 2017-03-04 11:26 | CP.PCM.PN ---
Subjective - Date & Time of Evaluation Date of Evaluation: 03/04/17 Time of Evaluation: 11:24 - Subjective Subjective: Patient c/o Right groin pain Site: No hematoma Will check stat CT abdomen r/o Retroperiteal bleed Patient hypertensive and bradycardiac CT ABD/Pelvis: No bleed Resume ASA, Lovenox 30, and ambulate Reduce Ziac and Add Home nifidepine D/C tomorrow in am if BP okay Objective - Vital Signs/Intake and Output Vital Signs (last 24 hours): Temp Pulse Resp BP Pulse Ox 97.6 F 52 L 20 160/79 H 95 03/04/17 07:03 03/04/17 07:03 03/04/17 07:03 03/04/17 07:03 03/04/17 07:03 Intake and Output: 03/04/17 03/04/17 06:59 18:59 Intake Total 0 Balance 0 - Medications Medications: Current Medications Acetaminophen (Tylenol 325mg Tab) 650 mg PO Q4H PRN PRN Reason: Pain, Mild (1-3) Amlodipine Besylate (Norvasc) 10 mg PO DAILY [facility] Gabapentin (Neurontin) 300 mg PO Q8 [facility] Last Admin: 03/04/17 06:04 Dose: 300 mg Isosorbide Mononitrate (Imdur) 60 mg PO DAILY [facility] Levothyroxine Sodium (Synthroid) 100 mcg PO DAILY@0630 [facility] Last Admin: 03/04/17 06:04 Dose: 100 mcg Mirtazapine (Remeron) 30 mg PO HS [facility] Last Admin: 03/03/17 22:00 Dose: 30 mg Nicotine (Nicoderm Cq) 1 patch TD DAILY [facility] Last Admin: 03/03/17 10:34 Dose: 1 patch Oxycodone/Acetaminophen (Percocet 5/325 Mg Tab) 2 tab PO Q6H PRN PRN Reason: Pain, moderate (4-7) Stop: 03/07/17 11:22 Pantoprazole Sodium (Protonix Ec Tab) 40 mg PO DAILY [facility] Last Admin: 03/03/17 09:07 Dose: 40 mg Rosuvastatin Calcium (Crestor) 40 mg PO HS [facility] Last Admin: 03/03/17 22:00 Dose: 40 mg - Labs Labs: 03/03/17 06:24 03/04/17 06:08 PT 11.9 SECONDS (9.7-12.2) 03/03/17 06:24 INR 1.1 03/03/17 06:24 APTT 95 SECONDS (21-34) H D 03/03/17 06:24
[2017-03-04] MEDS: Pantoprazole 40 mg EC Tab PO SCH (11:31)
--- NOTE | 2017-03-04 13:03 | CT ---
PROCEDURE: CT Abdomen and Pelvis without intravenous contrast HISTORY: R/O retro peritoneal bleed. Right groin pain COMPARISON: Comparison is made to the previous study dated 09/05/2016 TECHNIQUE: Axial and reformatted coronal and sagittal CT images of the abdomen and pelvis were obtained without IV contrast administration.. Contrast Dose: 0 Radiation dose: Total exam DLP = 1150.17 mGy-cm. This CT exam was performed using one or more of the following dose reduction techniques: Automated exposure control, adjustment of the mA and/or kV according to patient size, and/or use of iterative reconstruction technique. FINDINGS: LOWER THORAX: Unremarkable. LIVER: Unremarkable. No gross lesion or ductal dilatation. GALLBLADDER AND BILE DUCTS: The gallbladder is not visualized. The patient is likely status post prior cholecystectomy. PANCREAS: Again seen is 8.6 millimeter cyst at the tail of the pancreas image 22 series 2 has not significantly changed since the previous study. SPLEEN: Unremarkable. ADRENALS: Unremarkable. No mass. KIDNEYS AND URETERS: The right kidney is again larger than the left. No evidence of hydronephrosis or hydroureter. VASCULATURE: Unremarkable. No aortic aneurysm. BOWEL: Unremarkable. No obstruction. No gross mural thickening. Scattered colonic diverticulosis seen without evidence of diverticulitis. APPENDIX: Unremarkable. Normal appendix. PERITONEUM: Unremarkable. No free fluid. No free air. No evidence of intraperitoneal or retroperitoneal hemorrhage. LYMPH NODES: Unremarkable. No enlarged lymph nodes. BLADDER: Unremarkable. REPRODUCTIVE: Unremarkable. BONES: No acute fracture. OTHER FINDINGS: There is subcutaneous stranding seen at the right groin and inguinal region without evidence of fluid collection or discrete hematoma. IMPRESSION: No evidence of intraperitoneal or retroperitoneal hematoma. Subcutaneous stranding at the right groin and inguinal region without evidence of fluid collection. Sub centimeters stable cystic lesion at the tail of the pancreas. Right kidney is larger than the left. No significant interval change since the previous study noted.
[2017-03-05] MEDS: Levothyroxine 100 MCG TAB PO SCH (06:15)
[2017-03-05] MEDS: Pantoprazole 40 mg EC Tab PO SCH ×2 (08:17→09:46)
[2017-03-05 08:24] VITALS: TEMP 98.8
[2017-03-05 09:05] VITALS: BP 131/67; O2SAT 95
--- NOTE | 2017-03-05 09:39 | PN ---
DATE: 03/04/2017 SUBJECTIVE: The patient is seen today on 03/04/2017. She is status post cardiac catheterization. Patient had pain in the right groin and had a CAT scan of the abdomen and pelvis to rule out hematoma. PHYSICAL EXAMINATION: VITAL SIGNS: Blood pressure 147/82, pulse is 67. HEENT: Pupils are equal and reactive to light. Normal-appearing mucosa of the conjunctivae, oropharynx and nasal membrane mucosa. NECK: Supple. No JVD. No carotid bruits. No lymph node. No thyromegaly. CHEST AND LUNGS: Bilateral symmetrical expansion. Good air exchange. No rales, no rhonchi. CARDIOVASCULAR SYSTEM: PMI not localized. S1 and S2. No additional sounds. ABDOMEN: Normoactive bowel sounds. No tenderness. No organomegaly. No masses. EXTREMITIES: No cyanosis. No clubbing. No edema. CENTRAL NERVOUS SYSTEM: Alert, awake, and oriented x3. No neurological deficit could be appreciated. ASSESSMENT: Small vessel coronary artery disease, hypertension, hypothyroidism, osteoarthritis, degenerative spine disease. PLAN: Added nitrate and CAT scan of the abdomen and pelvis ruled out any form of bleeding or clotting. Adjust medications and discussed with Dr. Santo and will discharge the patient home tomorrow morning. Cisco Pradhan MD
[2017-03-05] MEDS ORDERED: NIFEdipine 60 mg ER Tab PO SCH (10:00)
[2017-03-05] MEDS ORDERED: Pneumococcal 23-Valent Vaccine IM ONE ×2 (10:00→12:45)
[2017-03-05] MEDS ORDERED: Enoxaparin 30 mg Syringe SC SCH (10:00)
[2017-03-05] MEDS ORDERED: Bisoprolol-HCTZ 2.5-6.25 mg Tab PO SCH (10:00)
[2017-03-05 13:52] VITALS: PULSE 59
--- NOTE | 2017-03-05 17:16 | CARD ---
APPROVED REPORT EXAM: Two-dimensional and M-mode echocardiogram with Doppler and color Doppler. Other Information Quality : GoodRhythm : INDICATION Dyspnea Chest Pain UNSTABLE ANGINA RISK FACTORS Hypertension Hyperlipidemia 2D DIMENSIONS IVSd0.8 (0.7-1.1cm)LVDd4.6 (3.9-5.9cm) PWd0.5 (0.7-1.1cm)LVDs3.2 (2.5-4.0cm) FS (%) 30.5 %LVEF (%)58.1 (>50%) M-Mode DIMENSIONS Left Atrium (MM)4.33 (2.5-4.0cm)Aortic Root2.90 (2.2-3.7cm) Aortic Cusp Exc.2.14 (1.5-2.0cm) Mitral Valve MV E Bqsicvmu08.0cm/sMV A Ephcjuzk11.3cm/sE/A ratio1.2 TDI E/Lateral E'0.0E/Medial E'0.0 Tricuspid Valve TR Peak Fcqpjkfp321tl/sTR Peak Gr.[id number] <Conclusion> Left ventricle: thickness: normal; size: normal; overall ejection fraction: 65%: diastolic filling pressures: elevated Mitral valve: annulus: normal: leaflets: normal: excursion: normal; no significant trans-mitral gradient: No significant incompetence: left atrium: normal Aortic valve: leaflets: normal: excursion: normal; no significant trans-aortic gradient: No significant incompetence: aortic root: normal Right sided Structures: Pulmonary valve: normal; no significant incompetence; Tricuspid valve: normal; no significant incompetence: Intra-cardiac hemodynamics: pulmonary systolic pressures: 33mmHg; central venous pressures: normal No pericardial effusion
--- NOTE | 2017-03-05 17:55 | CP.PCM.PN ---
Subjective - Date & Time of Evaluation Date of Evaluation: 03/05/17 Time of Evaluation: 11:00 - Subjective Subjective: Alert, awake, no sob or chest pains. Objective - Vital Signs/Intake and Output Vital Signs (last 24 hours): Temp Pulse Resp BP Pulse Ox 98.8 F 59 L 20 131/67 95 03/05/17 08:23 03/05/17 09:34 03/05/17 08:23 03/05/17 08:23 03/05/17 08:23 - Labs Labs: 03/03/17 06:24 03/04/17 06:08 PT 11.9 SECONDS (9.7-12.2) 03/03/17 06:24 INR 1.1 03/03/17 06:24 APTT 95 SECONDS (21-34) H D 03/03/17 06:24 Assessment and Plan - Assessment and Plan (Free Text) Assessment: Patient admitted with intermittent chest pains, s/p cardiac cath yesterday, seen and examined. Alert, awake, no sob or chest pains. Right groin has no hematoma, has mild pain. D/W DR Pradhan, plan to discharge home on home medications. Advised to follow up in the office in 1 week.
--- NOTE | 2017-03-06 02:11 | DS ---
REASON FOR ADMISSION: This is a 72-year-old female with history of multiple medical problems, was admitted for chest pain that radiates to the throat area. COURSE OF HOSPITALIZATION: The patient was admitted to telemetry floor. Cardiology consultation was done by Dr. Santo. Decision was to do cardiac catheterization that showed small vessel disease, but there is no large coronary artery disease. Imdur was added to the patient's medications and she was asymptomatic and discharged home in a stable condition. FINAL DIAGNOSES: Chest pain, myocardial infarction was ruled out, hypertension, hypothyroidism, atherosclerotic cardiovascular disease, and smoker. [facility] MD
--- NOTE | 2017-03-06 20:12 | CARD ---
APPROVED REPORT EKG Measurement Heart [id number] QT0T0 QTc0 <Conclusion> No electrical cardiac activity
--- NOTE | 2017-03-06 20:16 | CARD ---
APPROVED REPORT EKG Measurement Heart [id number] <Conclusion> Sinus bradycardia Otherwise normal ECG
--- NOTE | 2017-03-08 20:32 | CARDCATH ---
PROCEDURE DATE: 03/03/2017 PROCEDURES: 1. Left heart catheterization and coronary angiogram. 2. Radiological supervision and interpretation of the left heart catheterization and coronary angiogram. CLINICAL INDICATIONS: 1. Unstable angina. 2. Hypertension. 3. Hyperlipidemia. REFERRING PHYSICIAN: Cisco Pradhan MD PERFORMING PHYSICIAN: Cullen Santo MD PROCEDURE: After informed consent, the patient was prepped and draped in the usual sterile fashion. A 2% lidocaine was given on the right groin for local anesthesia. Using the micropuncture technique, 6-Portuguese sheath was introduced into right common femoral artery. A JL4 6-Portuguese diagnostic catheter engaged into left main coronary artery. Left coronary angiogram was performed. JR4 6-Portuguese catheter engaged into right coronary artery and right coronary angiogram was performed. JR4 6-Portuguese catheter inserted into left ventricle after crossing aortic valve. Hand LV angiogram was performed. The patient tolerated the procedure well. Radiological supervision and interpretation of the left ventricular angiogram and coronary angiogram was done. FINDINGS: 1. Left main coronary artery is patent. 2. Proximal LAD and diagonal branches are patent. Mid and distal LAD have diffuse narrowing. However, no focal stenotic lesions noted. 3. Left circumflex and the obtuse marginal branches are patent. 4. Right coronary artery is dominant. PDA and PLV branches are patent. 5. LV ejection fraction is approximately 65%. No gradient across the aortic valve noted. CONCLUSIONS: 1. Nonobstructive coronaries. 2. Normal LV systolic function. Recommend medical management. Cullen Santo MD
== END 2017-03-05 13:30 | disposition home or self-care (01) | DRG 287 ==
LOC: C.ER 09:06 → C.9E 12:17 → OBSVTOIN 12:17 → C.9I 14:12 → C.6T 16:33 → C.9E 16:57 → C.9I 16:58 → C.6T 03-04 06:48
PROVIDERS: ADMIT Internal Medicine; ATTEND Internal Medicine
PROC: 4A023N7 Measurement of Cardiac Sampling and Pressure, Left Heart, Percutaneous Approach (ICD-10-PCS; principal; 2017-03-02)
PROC: B2151ZZ Fluoroscopy of Left Heart using Low Osmolar Contrast (ICD-10-PCS; 2017-03-02)
PROC: B2111ZZ Fluoroscopy of Multiple Coronary Arteries using Low Osmolar Contrast (ICD-10-PCS; 2017-03-02)
DX: I25.110 Atherosclerotic heart disease of native coronary artery with unstable angina pectoris (principal); I12.9 Hypertensive chronic kidney disease with stage 1 through stage 4 chronic kidney disease, or unspecified chronic kidney disease; E03.9 Hypothyroidism, unspecified; E78.5 Hyperlipidemia, unspecified; E78.00 Pure hypercholesterolemia, unspecified; H91.90 Unspecified hearing loss, unspecified ear; I73.9 Peripheral vascular disease, unspecified; M47.9 Spondylosis, unspecified; N18.9 Chronic kidney disease, unspecified; R79.1 Abnormal coagulation profile; F17.200 Nicotine dependence, unspecified, uncomplicated; Z79.82 Long term (current) use of aspirin; Z79.899 Other long term (current) drug therapy; Z87.11 Personal history of peptic ulcer disease